=== PATIENT | female | born 1995 | race African-American/Black ===

== ENCOUNTER 2019-03-16 22:32 | Emergency (ER) | payer OTHER ==
--- NOTE | 2019-03-16 23:06 | EDM.PDOC ---
ED HPI GENERAL MEDICAL PROBLEM - General Chief Complaint: Respiratory Problem Stated Complaint: CONGESTION/SINUS PRESSURE Time Seen by Provider: 03/16/19 23:05 - History of Present Illness INITIAL COMMENTS - FREE TEXT/NARRATIVE: 23-year-old female presents the emergency room with nasal congestion. This started a couple days ago she is used Mucinex D. She is taken a total of 3 doses. She denies any fevers may be some real mild chills. Minimal cough. No sore throat. Patient denies any other symptoms no nausea vomiting burning or frequency with urination. No ear pain no significant sinus pressure. Other Treatments RESIDENTIAL DRIVER: mucinex Face/Facial Pain Score (Numeric/FACES): 7 - Related Data Allergies Allergy/AdvReac Type Severity Reaction Status Date / Time No Known Allergies Allergy Verified 03/16/19 22:43 Home Meds: Home Meds . [No Known Home Meds] 03/16/19 [History] Past Medical History - Past Health History Medical/Surgical History: Denies Medical/Surgical History Social & Family History - Tobacco Use Smoking Status *Q: Current Every Day Smoker Years of Tobacco use: 1 Packs/Tins Daily: 0.2 - Caffeine Use Caffeine Use: Reports: Soda - Recreational Drug Use Recreational Drug Type: Reports: Marijuana/Hashish ED ROS GENERAL - Review of Systems Review Of Systems: See Below Constitutional: Reports: No Symptoms. Denies: Fever, Chills HEENT: Reports: Rhinitis. Denies: Dental Pain, Ear Pain, Eye Discharge, Throat Pain, Throat Swelling, Vertigo, Vision Change Respiratory: Reports: No Symptoms Cardiovascular: Reports: No Symptoms GI/Abdominal: Reports: No Symptoms ED EXAM, GENERAL - Physical Exam Exam: See Below Exam Limited By: No Limitations General Appearance: Alert, No Apparent Distress Eye Exam: Bilateral Eye: Normal Inspection Ears: Normal External Exam, Normal Canal, Hearing Grossly Normal, Normal TMs Nose: Normal Inspection, Normal Mucosa, No Blood, Clear Rhinorrhea Throat/Mouth: Normal Inspection, Normal Lips, Normal Teeth, Normal Gums, Normal Oropharynx, Normal Voice, No Airway Compromise Head: Atraumatic, Normocephalic Neck: Normal Inspection, Supple, Non-Tender, Full Range of Motion Respiratory/Chest: No Respiratory Distress, Lungs Clear, Normal Breath Sounds Course - Vital Signs Last Recorded V/S: Last Vital Signs Temp 36.2 C 03/16/19 22:46 Pulse 85 03/16/19 22:46 Resp BP 135/96 H 03/16/19 22:46 Pulse Ox 98 03/16/19 22:46 - Re-Assessments/Exams Free Text/Narrative Re-Assessment/Exam: 03/16/19 23:19 Patient has a URI. She will continue the Mucinex D I have discussed the pros and cons of sinus irrigation she will give this a try. Departure - Departure Time of Disposition: 23:20 Disposition: Home, Self-Care 01 Preliminary Cause of *Q: Respiratory Failure Clinical Impression: Upper respiratory tract infection - Discharge Information Referrals: PCP,None [Primary Care Provider] - Forms: ED Department Discharge Additional Instructions: Return to the emergency room with any questions problems or worsening symptoms. Consider giving the sinus irrigation with the sinus cabinet abrasive sandblaster a try. Continue the Mucinex D Sepsis Event Note - Evaluation Sepsis Screening Result: No Definite Risk - Focused Exam Vital Signs: Vital Signs Temp Pulse BP Pulse Ox 03/16/19 22:46 36.2 C 85 135/96 H 98 Date Exam was Performed: 03/16/19 Time Exam was Performed: 23:16
== END 2019-03-16 23:31 ==
LOC: JD.ED 22:32
DX: J06.9 Acute upper respiratory infection, unspecified (principal); F17.210 Nicotine dependence, cigarettes, uncomplicated
CPT/HCPCS: 99281; 99283